=== PATIENT | female | born 1955 | race Caucasian/White ===

== ENCOUNTER → 2019-01-05 09:21 | Outpatient (CLI) | payer BC, SELFPAY ==
[2019-01-05 09:45] LABS: Basophils # 0.1 K/mm3 (0-0.2); Basophils % 1.1 % (0.1-2.0); Eosinophils # 0.1 K/mm3 (0.0-0.4); Eosinophils % 0.7 % (0.1-12.0); Hematocrit 46.2 % (37.0-47.0); Hemoglobin 14.2 g/dL (12.2-16.2); Lymphocytes # 3.3 K/mm3 (0.7-4.5); Lymphocytes % 44.2 % (10-50); Mean Corpuscular HGB Conc 30.7 g/dL (31.8-35.4); Mean Corpuscular Hemoglobin 27.5 pg (27.0-31.2); Mean Corpuscular Volume 89.6 fl (81-99); Mean Platelet Volume 9.6 fl (7.4-10.4); Monocytes # 0.4 K/mm3 (0.1-1.0); Monocytes % 5.1 % (1.7-9.3); Neutrophils # 3.6 K/mm3 (1.8-7.8); Neutrophils % 48.9 % (37.0-80.0); Platelet Count 260 K/mm3 (142-424); Red Blood Count 5.16 M/mm3 (4.20-5.40); Red Cell Distribution Width 13.4 % (11.5-17.5); White Blood Count 7.4 K/mm3 (4.8-10.8)
[2019-01-05 10:43] LABS: Anion Gap 11.9 mEq/L (5-15); Blood Urea Nitrogen 15 mg/dL (7-18); Carbon Dioxide 31 mmol/L (21.0-32.0); Chloride 104 mmol/L (98-107); Chol/HDL Ratio 5.2 (1-3.5); Cholesterol 233 mg/dL (140-200); Creatinine,Serum 0.92 mg/dL (0.55-1.02); Estimated Glomerular Filt Rate 62 ml/min (>60); GFR (African American) 75 ML/MIN (>60); Glucose 102 mg/dL (74-106); HDL Cholesterol 45 mg/dL (29-89); LDL Cholesterol 136 mg/dL (0-130); Potassium 3.9 mmoL/L (3.5-5.1); Sodium 143 mmol/L (136-145); Triglycerides 261 mg/dL (30-200); VLDL Cholesterol 52 mg/dL (0-40)
== END ==
PROVIDERS: Visit Provider Internal Medicine Cardiovascular Disease
DX: R06.02 Shortness of breath (principal); R07.9 Chest pain, unspecified
CPT/HCPCS: 36415; 80048; 80061; 83880; 85025

== ENCOUNTER → 2019-01-06 15:01 | Outpatient (CLI) | payer MEDICARE, SELFPAY ==
--- NOTE | 2019-01-06 15:04 | CA_ITS ---
APPROVED REPORT EXAM: Comprehensive 2D, Doppler, and color-flow Echocardiogram Community Health Consultant: Lacy Carrera RT(R) Ht: 5 ft 2 in Wt: 181lbs BSA: 1.83 BP: 139/50 mmHg Indications: CP, HX CABG, HX CVA, RAKLE, stents, fatigue, HTN, SOB 2D Dimensions LVOT 2.00 cm (M/F) 1.5-2.5 M-Mode Dimensions RVDd 1.90 cm (0.9-2.6) LA Diam 3.40 cm (1.9-4.0) LVDd 4.10 cm (3.5-5.7) Ao Diam 2.70 cm (2.0-3.7) LVDs 2.70 cm (3.5-5.7) AV Cusp 1.70 cm (1.5-2.6) IVSd 0.70 cm (0.6-1.1) PWd 0.90 cm (0.6-1.1) EF (Teich) 63.60% FS 34.10% EDV (Teich) 74.20 mL ESV (Teich) 27.00 mL LV Diastology E/A Ratio 0.7 MED E' 6.29 (< 7 cm/sec) E'/MED E' Ratio 11.40 (>14) LAT E' 9.46 (<10 cm/sec) E/LAT E' Ratio 7.60 (>14) Mitral Valve MV E Max Alfred. 71.80 (40-130 cm/s) MV A Velocity 102.00 (40-130 cm/s) E/A Ratio 0.70 Left Ventricle Left atrium is mildly enlarged, left ventricle is normal size, mild concentric left ventricular hypertrophy, visually estimated ejection fraction 55% with no regional wall motion abnormality, grade 1 diastolic dysfunction. Without tissue Doppler evidence of raise left atrial pressure. Right Ventricle Right atrium and right ventricular normal size and contractility. Aortic Valve Aortic valve is minimally thickened and fibrosed. There is no aortic stenosis aortic insufficiency. Mitral Valve Mitral valve is grossly normal, there is mild mitral regurgitation. Tricuspid Valve Tricuspid valve is grossly normal, there is mild tricuspid regurgitation. Pulmonic Valve Pulmonic valve is poorly visualized. Great Vessels Aortic root is normal size. Pericardium No significant pericardial effusion noted. Conclusion 1. Mild biatrial enlargement, normal left ventricular size, mild concentric left ventricular hypertrophy, visually estimated ejection fraction 55% with no regional wall motion abnormality, grade 1 diastolic dysfunction seen without tissue Doppler evidence of raise left atrial pressure. 2. Mild mitral and tricuspid regurgitation 3. No significant pericardial effusion noted. Electronically signed by : Jovani Wilde, 01/07/2019 13:50:32
== END ==
PROVIDERS: PCP Family Medicine; Visit Provider Internal Medicine
DX: I50.9 Heart failure, unspecified (principal); R06.02 Shortness of breath; G47.33 Obstructive sleep apnea (adult) (pediatric)
CPT/HCPCS: 93306; G0399

== ENCOUNTER → 2019-02-15 15:44 | Outpatient (CLI) | payer MEDICARE, SELFPAY ==
[2019-02-15 18:40] LABS: Ferritin 102 ng/mL (8-388)
== END ==
PROVIDERS: Visit Provider Specialist
DX: E83.10 Disorder of iron metabolism, unspecified (principal); G47.33 Obstructive sleep apnea (adult) (pediatric)
CPT/HCPCS: 36415; 82728

== ENCOUNTER → 2021-06-27 11:01 | Outpatient (CLI) | payer MEDICARE, SELFPAY ==
--- NOTE | 2021-06-27 | CA_ITS ---
APPROVED REPORT Exam: Pharmacologic Technologist: Marquita Reyes Ht: 5 ft 2 in Wt: 169 lbs BSA: 1.78 m2 HR: 66 bpm BP: 128/68 mmHg Indications: CAD, dyspnea Medical History Medications: Isosorbide,,,,, Aspirin,,,,, Pantoprazole,,,,, Atorvastatin,,,,, Escitalopram,,,,, Montelukast,,,,, CloPIdogrel,,,,, BisOPROLOL,,,,, Meclizine,,,,, DilTiazem,,,,, SpirOnolactone,,,,, ONdansetron,,,,, Stress Test Details Test: LEXISCAN HR Resting HR: 80 bpm Max Heart Rate (APMHR): 155.333645 bpm Max HR Achieved: 122 bpm Target HR (85% APMHR): 131.727010 bpm % of APMHR: 78.71 Recovery HR: 78 bpm BP Resting BP: 128.0/68.0 mmHg Max BP: 150.0/62.0 mmHg Recovery BP: 133.0/59.0 mmHg ECG Resting ECG: Normal sinus rhythm, rightward axis Clinical Exercise duration: 04:00 min Highest Stage Achieved: Exercise capacity: 1.0 METs Stress ECG Conclusion Symptoms: Mild chest tightness, mild shortness of air, numb all over. Arrhythmias/Ectopy: Occasional fusion beat. ST-T Changes: NS ST changes most notable in the inferior leads. Conclusion: Non-diagnostic lexiscan stress. Myoview images reported separately. Electronically signed by : Jovani Wilde MD 06/27/2021 20:42:55
--- NOTE | 2021-06-27 11:05 | CA_ITS ---
APPROVED REPORT EXAM: Comprehensive 2D, Doppler, and color-flow Echocardiogram Toolroom Clerk: Lacy Carrera RT(R) Ht: 5 ft 2 in Wt: 169lbs BSA: 1.78 BP: 159/96 mmHg Indications: HTN, FISHER, hyperlipidemia, CHF, CAD, CABG, RAKEL, hx CVA, GERD 2D Dimensions Aortic Root 1.82 cm F: 2.7 - 3.3 LA Volume 22.50 mL LA Volume Index 12.64 mL/m2 (M/F) 16-34 M-Mode Dimensions RVDd 2.27 cm (0.9-2.6) LA Diam 3.34 cm (1.9-4.0) LVDd 4.35 cm (3.5-5.7) Ao Diam 2.33 cm (2.0-3.7) LVDs 3.04 cm (3.5-5.7) IVSd 0.80 cm (0.6-1.1) PWd 0.87 cm (0.6-1.1) EF (Teich) 57.60% FS 30.10% EDV (Teich) 85.40 mL ESV (Teich) 36.20 mL LV Diastology E Decel Time 220.00 (160-240 msec) E/A Ratio 0.8 MED E' 4.30 (< 7 cm/sec) E'/MED E' Ratio 19.47 (>14) LAT E' 7.00 (<10 cm/sec) E/LAT E' Ratio 11.96 (>14) Mitral Valve MV E Max Alfred. 84.00 (40-130 cm/s) MV A Velocity 107.00 (40-130 cm/s) E/A Ratio 0.78 MV Decel. Time 220.00 (160-240 ms) MV PHT 64.00 ms Left Ventricle Left atrium minimally left ventricular normal size, mild concentric left ventricular hypertrophy, estimated ejection fraction 55% with no regional wall motion abnormality, grade 1 diastolic dysfunction. Left ventricular concentric left atrial pressure. Right Ventricle Right atrium and right ventricle are normal size and contractility. Aortic Valve Aortic valve is minimally thickened and fibrosed, there is no aortic stenosis or aortic insufficiency. Mitral Valve Mitral valve is grossly normal, there is trace mitral regurgitation. Tricuspid Valve Tricuspid grossly normal, there is trace tricuspid regurgitation, tricuspid regurgitation jet velocity is inadequate for calculation of the right ventricular systolic pressure. Pulmonic Valve Pulmonic valve is poorly visualized. Great Vessels Aortic root is normal size. Inferior vena cava is poorly visualized. Pericardium No significant pericardial effusion noted. Conclusion 1. Mildly enlarged left atrium, left ventricle normal left ventricular size, mild concentric left ventricular hypertrophy, estimated ejection fraction 55% with no regional wall motion abnormality, grade 1 diastolic dysfunction seen without tissue Doppler evidence of raise left atrial pressure. 2. Trace mitral and tricuspid regurgitation. 3. No significant pericardial effusion. 4. Inferior vena cava is poorly visualized. Electronically signed by : Jovani Wilde MD 06/27/2021 21:25:34
--- NOTE | 2021-06-27 11:50 | NM_ITS ---
APPROVED REPORT Exam: Nuclear Stress Test Indication: CABG, HTN, HYPERLIPIDEMIA, TOB USE, FM HX, STROKE, SOB, PALPITATIONS, FATIGUE, SLEEP APNEA Patient Location: Outpatient Stress Tech: Marquita Reyes NM Tech:Kylah HancockJONATAN RT (R)(N)(M) Ht: 5 ft 2 in Wt: 163 lbs Bra Size: 36B BSA: 1.75 m2 BMI: 29.8 History: CABG, HTN, HYPERLIPIDEMIA, TOB USE, FM HX, STROKE, SOB, PALPITATIONS, FATIGUE, SLEEP APNEA Procedure: Patient received a 0.4 mg of intravenous Lexiscan, resting heart rate 66 bpm, resting blood pressure 128/88 mmHg, with Lexiscan maximum heart rate achived was 122 bpm which is Less than 85 % of the maximum predicted heart rate and blood pressure was 150/62 mmHg. PT DID C/O C.P. Electrocardiogram Resting electrocardiogram shows sinus rhythm, with Lexiscan there is less than 1.[address] segment depression noted from the baseline EKG. The EKG portion of the Lexiscan is nondiagnostic. Cardiac Stress and Resting SPECT Images: Cardiac Stress and Resting SPECT images were obtained using technetium 99m Myoview 31.9 mCi stress and 10.21 mCi at rest. Gated SPECT for analysis of segmental wall motion and calculation of the ejection fraction also done. Cardiac stress and resting SPECT images show uniform myocardial activity without segmental perfusion abnormality, computer derived ejection fraction is 65% with no regional wall motion abnormality, right ventricle is normal size and contractility. Conclusion: 1. The EKG portion of the Lexiscan is nondiagnostic. 2. No scintigraphic evidence of reversible ischemia seen, computer derived ejection fraction is 65% with no regional wall motion abnormality, right ventricle is normal size and contractility. 3. Normal Lexiscan Myoview study. Electronically signed by : Jovani Wilde MD 06/27/2021 20:45:21
== END ==
LOC: RT 11:05
PROVIDERS: PCP Family Medicine; Visit Provider Internal Medicine
DX: G47.33 Obstructive sleep apnea (adult) (pediatric) (principal); I25.118 Atherosclerotic heart disease of native coronary artery with other forms of angina pectoris; I50.9 Heart failure, unspecified; I63.9 Cerebral infarction, unspecified; R06.02 Shortness of breath; Z95.1 Presence of aortocoronary bypass graft; E78.5 Hyperlipidemia, unspecified; I11.0 Hypertensive heart disease with heart failure
CPT/HCPCS: 78452; 93017; 93306; A9502; J2785

== ENCOUNTER → 2022-10-31 14:39 | Outpatient (CLI) | payer MEDICARE, SELFPAY ==
--- NOTE | 2022-10-31 14:43 | CA_ITS ---
APPROVED REPORT EXAM: Comprehensive 2D, Doppler, and color-flow Echocardiogram Irrigation Service Technician: Verna Yanez RDCS Ht: 5 ft 2 in Wt: 162lbs BSA: 1.75 BP: 135/101 mmHg Indications: SOA CAD CABG 2D Dimensions LVOT 1.66 cm (M/F) 1.5-2.5 M-Mode Dimensions RVDd 2.65 cm (0.9-2.6) LA Diam 3.23 cm (1.9-4.0) LVDd 4.89 cm (3.5-5.7) Ao Diam 2.66 cm (2.0-3.7) LVDs 3.15 cm (3.5-5.7) IVSd 0.60 cm (0.6-1.1) PWd 0.70 cm (0.6-1.1) EF (Teich) 64.90% FS 35.60% EDV (Teich) 112.30 mL ESV (Teich) 39.40 mL LV Diastology E Decel Time 237.00 (160-240 msec) E/A Ratio 1.0 MED E' 8.00 (< 7 cm/sec) E'/MED E' Ratio 10.25 (>14) LAT E' 10.80 (<10 cm/sec) E/LAT E' Ratio 7.59 (>14) Mitral Valve MV E Max Alfred. 82.00 (40-130 cm/s) MV A Velocity 79.00 (40-130 cm/s) E/A Ratio 1.04 MV Decel. Time 237.00 (160-240 ms) MV PHT 69.00 ms Left Ventricle The left ventricle is normal size. The left ventricular systolic function is normal. The left ventricular ejection fraction is within the normal range. There is proximal septal thickening present. There is normal LV segmental wall motion. The left ventricular diastolic function is normal. LVEF is 60%. Right Ventricle The right ventricle is mildly dilated. The right ventricular systolic function is normal. Atria Left atrium is mildly dilated. Right atrium is mildly dilated. There is no Doppler evidence of interatrial shunt. Aortic Valve The aortic valve is mildly thickened. There is no aortic valvular stenosis. Mild aortic regurgitation. Mitral Valve The mitral valve is normal in structure. No evidence of mitral valve stenosis. Mild mitral regurgitation. Tricuspid Valve Tricuspid valve leaflets are thin and pliable. Mild tricuspid regurgitation. RVSP is normal. Pulmonic Valve The pulmonary valve is normal in structure. Trace pulmonic regurgitation. Great Vessels The aortic root is normal in size. IVC is normal in size and collapses >50% with inspiration. Pericardium There is no pericardial effusion. Other Information Study Quality: Fair Conclusion Normal biventricular systolic function. No significant valvular disease. Electronically signed by : Chloé Fonseca, 11/02/2022 16:17:09
== END ==
LOC: RT 14:40
PROVIDERS: PCP Family Medicine; Visit Provider Nurse Practitioner
DX: E78.5 Hyperlipidemia, unspecified (principal); G47.33 Obstructive sleep apnea (adult) (pediatric); I25.118 Atherosclerotic heart disease of native coronary artery with other forms of angina pectoris; I50.9 Heart failure, unspecified; R06.02 Shortness of breath; R53.83 Other fatigue; R60.9 Edema, unspecified
CPT/HCPCS: 93306

== ENCOUNTER → 2022-11-06 12:10 | Outpatient (CLI) | payer MEDICARE, SELFPAY ==
--- NOTE | 2022-11-06 12:19 | XR_ITS ---
FINAL REPORT CLINICAL HISTORY: dyspnea, edema FINDINGS: TWO-VIEW CHEST The heart size is normal. The patient is status post median sternotomy. The lungs are clear. There is no pneumothorax. IMPRESSION: No acute cardiopulmonary process. Reviewed, Interpreted and Dictated by Brock Martínez III, MD Transcribed by Lorie Tolentino Authenticated and [facility]
[2022-11-06 12:27] LABS: Chloride 102 mmol/L (98-107); Sodium 140 mmol/L (136-145)
[2022-11-06 12:30] LABS: Blood Urea Nitrogen 14 mg/dl (7-17); Estimated Glomerular Filt Rate 63 ml/min (>60); GFR (African American) 76 ML/MIN (>60)
[2022-11-06 12:31] LABS: Calcium 9.5 mg/dl (8.4-10.2); Carbon Dioxide 32 mmol/L (22.0-30.0); Glucose 112 mg/dl (74-100)
[2022-11-06 12:53] LABS: NT Pro Brain Natriuretic Pep. 102 pg/mL (0-125)
== END ==
LOC: LAB 12:11
PROVIDERS: PCP Family Medicine; Visit Provider Internal Medicine
DX: E78.5 Hyperlipidemia, unspecified (principal); G47.33 Obstructive sleep apnea (adult) (pediatric); I25.10 Atherosclerotic heart disease of native coronary artery without angina pectoris; I50.9 Heart failure, unspecified; R05.9 Cough, unspecified; R06.02 Shortness of breath; R53.83 Other fatigue; R60.9 Edema, unspecified; Z95.1 Presence of aortocoronary bypass graft
CPT/HCPCS: 36415; 71046; 80048; 83880

== ENCOUNTER 2024-11-24 11:11 | Outpatient (CLI) | payer MEDICARE, SELFPAY ==
--- OUTSIDE RECORDS SUMMARY | 2024-11-24 11:34 | XMS_ITS | Clinical Summary ---
Author Organization [facility] Address [address] [place] [address] Phone Care Team Providers Care Track Inspecting Supervisor Name Role Phone Pelon Portillo Primary Care Provider [phone] Allergies Active Allergy Reactions Criticality Noted Date Comments Codeine 09/09/2014 Medications famotidine (PEPCID) 20 mg Oral Tablet Take 20 mg by mouth 2 times daily. Active hydrochlorothiaz lauri (HYDRODIURIL) 25 mg Oral Tablet Take by mouth daily. Active atorvastatin (LIPITOR) 80 mg Oral Tablet Take 80 mg by mouth daily. Active clopidogrel (PLAVIX) 75 mg Oral Tablet Take 75 mg by mouth daily. Active montelukast (SINGULAIR) 10 mg Oral Tablet Take 10 mg by mouth daily. Active aspirin 81 mg Oral Tablet, Chewable Take 1 Tab by mouth daily. 09/23/2014 Active metoprolol (LOPRESSOR) 25 mg Oral Tablet Take 0.5 Tabs by mouth 2 times daily. 60 Tab 3 09/23/2014 Active HYDROcodone-acet aminophen 2.5-325 mg Oral Tablet Take 1-2 Tabs by mouth every 4 hours as needed for Pain. 80 Tab 0 09/25/2014 Active Active Problems Problem Noted Date Diagnosed Date S/P CABG x 1 10/11/2014 Complication of reimplantation procedure 015 CAD (coronary artery disease) 09/13/2014 Polymorphic ventricular tachycardia Surgical History Surgery Date Site/Laterality Comments HYSTERECTOMY CHOLECYSTECTOMY EYE SURGERY 2008 Bilateral cataracts CARDIAC SURGERY 09/21/2014 Right REIMPLANTATION OF RIGHT CORONARY ARTERY AND TRANSESOPHAGEAL ECHOCARDIOGRAM; Surgeon: Juancarlos Arreola MD; Location: [facility]; Service: Open Heart Medical History Medical History Date Comments CAD (coronary artery disease) 09/13/2014 Asthma Unspecified sleep apnea uses cpa p Cardiac dysrhythmia, unspecified Hyperlipidemia Hypertension Heartburn Headache(784.0) Syncope and collapse Unspecified cerebral artery occlusion with cereb ral infarction 03/06 Post-operative nausea and vomiting Motion sickness Family History Medical History Relation Name Comments Heart Disease Brother Relation Name Status Comments Brother Alive Father Mother Social History Tobacco Use Types Packs/Day Years Used Date Smoking Tobacco: Never Smokeless Tobacco: Never Alcohol Use Standard Drinks/Week Comments No 0 (1 standard drink = 0.6 oz pur e alcohol) Comments No Sex and Gender Information Value Date Recorded Sex Assigned at Not on file Legal Sex Female 2:19 PM EDT Gender Identity Not on file Sexual Orientation Not on file Obstetrics History Last Filed Vital Signs Vital Sign Reading Time Taken Comments Blood Pressure 116/68 10/11/2014 11:40 AM EDT Pulse 84 10/11/2014 11:40 AM EDT Temperature 36.4 C (97.5 F) 09/25/2014 7:48 AM EDT Respiratory Rate 18 09/25/2014 5:45 AM EDT Oxygen Saturation 98% 10/11/2014 11:40 AM EDT Inhaled Oxygen Concentration - - Weight 81.3 kg (179 lb 3 oz) 09/25/2014 5:45 AM EDT Height 157.5 cm (5' 2 ) 09/23/2014 6:02 AM EDT Body Mass Index 32.77 09/23/2014 6:02 AM EDT Plan of Treatment Health Maintenance Due Date Last Done Comments Annual Wellness Exam 1959 Hepatitis C Screening 1974 DTaP/TDaP/Td (1 - Tdap) 1975 Breast Cancer Screening 1996 Cologuard 2001 Colon Cancer Screening 2001 Colonoscopy 2001 FIT 2001 Sigmoidoscopy 2001 Virtual Colonography 2001 Pneumococcal Vaccine 50+ (1 of 1 - PCV) 2006 Zoster (1 of 2) 2006 Bone Density Screening 2021 COVID-19 Vaccine (2023-2 5 season) 2023 Influenza Vaccine (#1) 2024 Hepatitis B Vaccine Aged Out No longe r eligible based on patient's age to complete this topic Meningococcal B Vaccine Aged Out No l onger eligible based on patient's age to complete this topic Insurance [facility] MEDICAID MEDICAID [place]FFANIE PPO * Guarantor: [employer] Account Type Relation to Patient Date of Phone Billing Address [employer] 1965 ATTN: ROSSANA MCCOY [address] [address] [place] [address] Advance Directives For more information, please contact: [phone] * Full Code (Latest Code Status on File) Date Activated Date Inactivated Comments 09/25/2014 10:28 AM 09/25/2014 7:35 PM * Full Code Date Activated Date Inactivated Comments 09/21/2014 10:58 AM 09/23/2014 8:21 AM Care Teams Track Inspecting Supervisor Relationship Specialty Start Date End Date Pelon Portillo [address] [place] [address] PCP - General Family Medicine 09/09/14
[2024-11-24 12:14] LABS: Hematocrit 42.2 % (37.0-47.0); Hemoglobin 13.4 g/dL (12.2-16.2); Immature Granulocytes % 0.2 %; Mean Corpuscular HGB Conc 31.8 g/dL (31.8-35.4); Mean Corpuscular Hemoglobin 27.6 pg (27.0-31.2); Mean Corpuscular Volume 87.0 fl (81-99); Nucleated Red Blood Cells % 0 %; Platelet Count 210 K/mm3 (142-424); Red Blood Count 4.85 M/mm3 (4.20-5.40); Red Cell Distribution Width-SD 40.0 fL; White Blood Count 11.0 K/mm3 (4.8-10.8)
[2024-11-24 12:49] LABS: Alanine Aminotransferase 22 U/L (12-78); Albumin Level 4.3 g/dl (3.5-5.0); Alkaline Phosphatase 90 U/L (38-126); Anion Gap 11.4 mEq/L (5-15); Aspartate Amino Transferase 24 U/L (14-36); Bilirubin,Direct 0.0 mg/dl (0.0-0.4); Bilirubin,Indirect 0.4 mg/dL (0.0-0.9); Bilirubin,Total 0.4 mg/dl (0.2-1.3); Bilirubin,Unconjugated 0.3 mg/dL (0.0-1.1); Blood Urea Nitrogen 14 mg/dl (7-17); Calcium 9.3 mg/dl (8.4-10.2); Carbon Dioxide 27 mmol/L (22.0-30.0); Chloride 105 mmol/L (98-107); Cholesterol 264 mg/dl (140-200); Creatinine,Serum 0.80 mg/dl (0.52-1.04); Estimated Glomerular Filt Rate 71 ml/min (>60); GFR (African American) 86 ML/MIN (>60); Glucose 93 mg/dl (74-100); HDL Cholesterol 43 mg/dl (40-60); Magnesium 1.9 mg/dl (1.6-2.3); Potassium 4.4 mmoL/L (3.5-5.1); Sodium 139 mmol/L (136-145); Total Protein,Serum 6.5 g/dl (6.3-8.2); Triglycerides 182 mg/dl (30-150)
[2024-11-24 12:56] LABS: RBC Morphology Normal; Total Cells Counted 100
[2024-11-24 13:04] LABS: Free T4 (Free Thyroxine) 1.26 ng/dl (0.78-2.19)
[2024-11-24 13:19] LABS: Thyroid Stimulating Hormone 1.75 uIU/mL (0.465-4.68)
[2024-11-24 13:54] LABS: Hemoglobin A1C 5.9 % (4.0-6.0)
== END 2024-11-24 23:59 | disposition home or self-care (01) ==
LOC: LAB 11:12
PROVIDERS: PCP Family Medicine; Visit Provider Nurse Practitioner
DX: Z01.812 Encounter for preprocedural laboratory examination (principal); Z01.810 Encounter for preprocedural cardiovascular examination; Z13.1 Encounter for screening for diabetes mellitus
CPT/HCPCS: 36415; 80048; 80061; 80076; 83036; 83735; 84439; 84443; 85007; 85025

== ENCOUNTER 2024-12-08 06:15 | Outpatient (CLI) | payer MEDICARE, SELFPAY ==
--- NOTE | 2024-12-08 | CA_ITS ---
APPROVED REPORT Exam: Pharmacologic Technologist: Marquita Reyes Stress Nurse: Kylah De Leon Ht: 5 ft 2 in Wt: 187 lbs BSA: 1.86 m2 HR: 59 bpm BP: 184/68 mmHg Stress Test Details Test: Lexiscan HR Resting HR: 59 bpm Max Heart Rate (APMHR): 152.106420 bpm Max HR Achieved: 92 bpm Target HR (85% APMHR): 129.565784 bpm % of APMHR: 60.53 Recovery HR: 70 bpm BP Resting BP: 184.0/68.0 mmHg Max BP: 184.0/68.0 mmHg Recovery BP: 165.0/57.0 mmHg ECG Resting ECG: Sinus rhythm Stress ECG Conclusion Lungs CTA Symptoms: None Arrhythmias/Ectopy: PVC ST-T Changes: Less than 0.[address] segment changes. Conclusion: Non-diagnostic ECG/ Lexiscan Electronically signed by : Chloé Fonseca MD 12/08/2024 12:39:57
--- OUTSIDE RECORDS SUMMARY | 2024-12-08 06:18 | XMS_ITS | Clinical Summary ---
Author Organization [facility] Address [address] [place] [address] Phone Care Team Providers Care Deck Supervisor Name Role Phone Pelon Portillo Primary Care Provider [phone] Allergies Active Allergy Reactions Criticality Noted Date [...] Screening 2021 COVID-19 Vaccine (2023-2 5 season) 2024 Influenza Vaccine (#1) 2024 Hepatitis B Vaccine Aged Out No longe r eligible based on patient's age to complete this topic Meningococcal B Vaccine Aged Out No l onger eligible based on patient's age to complete this topic Insurance [facility] MEDICAID MEDICAID TIFFANIE PPO * Guarantor: [employer] Account Type Relation to Patient Date of Phone Billing Address [employer] 1965 ATTN: ROSSANA MCCOY [address] [address] [place] [address] Advance Directives For more information, please contact: [phone] * Full Code (Latest Code Status on File) Date Activated Date Inactivated Comments 09/25/2014 10:28 AM 09/25/2014 7:35 PM * Full Code Date Activated Date Inactivated Comments 09/21/2014 10:58 AM 09/23/2014 8:21 AM Care Teams Deck Supervisor Relationship Specialty Start Date End Date Pelon Portillo [address] [place] [address] PCP - General Family Medicine 09/09/14
--- NOTE | 2024-12-08 06:30 | NM_ITS ---
APPROVED REPORT Exam: Nuclear Stress Test Indication: soa..palpitations..fatigue Patient Location: Outpatient Stress Tech: Marquita Reyes NM Tech:Viviana CashringtonJONATAN RT(R)(N) Ht: 5 ft 2 in Wt: 180 lbs Bra Size: 42c HR: 56 bpm BP: 184/68 mmHg BSA: 1.83 m2 TID: 1.03 BMI: 32.9 History: soa..palpitations..fatigue Procedure: Patient received 0.4 mg of intravenous Lexiscan, resting heart rate 56 bpm, resting blood pressure 184/68 mmHg, with Lexiscan maximum heart rate achieved was 91 bpm which is 85 % of the maximum predicted heart rate and blood pressure was 160/65 mmHg. With Lexiscan, patient denied any complaint of chest pain. Cardiac Stress and Resting SPECT Images: Cardiac Stress and Resting SPECT images were obtained using technetium 99m Myoview 31.6 mCi stress and 10.71 mCi at rest. Resting and stress imaging in supine and prone positions demonstrate no evidence of fixed or reversible perfusion defects. Gated imaging demonstrates normal global and regional LV systolic function. LVEF is calculated at 68%. Conclusion: No evidence of fixed or reversible perfusion defects. Gated imaging demonstrates normal global and regional LV systolic function. LVEF is calculated at 68%. Electronically signed by : Chloé Fonseca MD 12/08/2024 12:36:38
[2024-12-08 08:00] VITALS: BP 184/68; PULSE 59; RESP 16
[2024-12-08] MEDS: SODIUM CHLORIDE 0.9% 10ML SYR (RAD ONLY) 10 ML IV ×2 (08:59→09:00)
[2024-12-08] MEDS: ISOTOPE MYOVIEW (PER STUDY) 1 DOSE IV (08:59)
--- NOTE | 2024-12-08 09:00 | US_ITS ---
FINAL REPORT CLINICAL HISTORY: Claudication FINDINGS: LOWER EXTREMITY SEGMENTAL PRESSURE MEASUREMENTS FINDINGS: Pressure indices are as follows: RIGHT LOWER EXTREMITY: Thigh: 1.08 Calf: 1.06 Ankle, posterior tibial artery: 1.09 Ankle, dorsalis pedis: 0.98 Toe: 0.97 DIOMEDES: 1.09 Comments: Within normal limits LEFT LOWER EXTREMITY: Thigh: 0.96 Calf: 1.08 Ankle, posterior tibial artery: 0.97 Ankle, dorsalis pedis: 0.96 Toe: 0.80 DIOMEDES: 0.97 Comments: Within normal limits IMPRESSION: No evidence of peripheral vascular disease in the bilateral lower extremities. Reviewed, Interpreted and Dictated by Mary Anne Dial MD Transcribed by Lena Lawrence Authenticated and . [facility]
--- NOTE | 2024-12-08 09:30 | CA_ITS ---
APPROVED REPORT EXAM: Comprehensive 2D, Doppler, and color-flow Echocardiogram Manager Community: Jaylin Tavarez CRT Ht: 5 ft 2 in Wt: 187lbs BSA: 1.86 BP: 166/91 mmHg Indications: Chest Pain, Shortness of Breath, Fatigue, Peripheral Edema 2D Dimensions LA Volume 44.70 mL LA Volume Index 23.50 mL/m2 (M/F) 16-34 M-Mode Dimensions RVDd 2.19 cm (0.9-2.6) LA Diam 3.39 cm (1.9-4.0) LVDd 3.93 cm (3.5-5.7) LVDs 2.40 cm (3.5-5.7) IVSd 1.50 cm (0.6-1.1) PWd 0.62 cm (0.6-1.1) EF (Teich) 69.90% FS 38.90% EDV (Teich) 67.10 mL ESV (Teich) 20.20 mL LV Diastology E Decel Time 163 (160-240 msec) E/A Ratio 0.96 MED A' 11.10 cm/s LAT A' 16.10 cm/s Aortic Valve AO Peak GR. 6.40 mmHg Mitral Valve MV A Velocity 105.0 (40-130 cm/s) E/A Ratio 0.96 Pulmonary Valve PV Peak Velocity 132.0 (50-150 cm/s) Tricuspid Valve TR P. Velocity 273.00 cm/s RAP Estimate 10.00 mmHg RVSP 39.80 mmHg Left Ventricle The left ventricle is normal size. Left ventricular systolic function is normal. The left ventricular ejection fraction is within the normal range. There is increased left ventricular wall thickness. Proximal septal thickening is present. There is normal LV segmental wall motion. Transmitral Doppler flow pattern suggests impaired LV relaxation. LVEF is 55% Right Ventricle The right ventricle is normal size. The right ventricular systolic function is normal. Atria The left atrium is mildly dilated. The right atrium is mildly dilated. There is no color Doppler evidence of interatrial shunt. Aortic Valve The aortic valve is mildly thickened. There is no hemodynamically significant aortic valvular stenosis. No aortic regurgitation is present. Mitral Valve The mitral valve is normal in structure. No evidence of mitral valve stenosis. Trace mitral regurgitation is present. Tricuspid Valve The tricuspid valve leaflets are thin and pliable. Mild tricuspid regurgitation. RVSP is 25-30 mmHg. Pulmonic Valve The pulmonary valve is grossly normal in structure. Mild pulmonic valve regurgitation is present. Great Vessels The aortic root is normal in size. IVC is normal in size and collapses >50% with inspiration. Pericardium There is no pericardial effusion. Other Information Study Quality: Fair Conclusion Normal biventricular systolic function. Mild biatrial dilation. Mild TR, mild PI. Electronically signed by : Chloé Fonseca MD 12/12/2024 16:11:10
== END 2024-12-08 23:59 | disposition home or self-care (01) ==
LOC: RAD 06:16
PROVIDERS: PCP Family Medicine; Visit Provider Nurse Practitioner
DX: Z01.810 Encounter for preprocedural cardiovascular examination (principal); I08.8 Other rheumatic multiple valve diseases; I49.3 Ventricular premature depolarization; I73.9 Peripheral vascular disease, unspecified; Z13.1 Encounter for screening for diabetes mellitus
CPT/HCPCS: 78452; 93017; 93018; 93306; 93923; A9502; J2785